=== PATIENT | male | born 1950 | race Caucasian/White ===

== ENCOUNTER → 2021-09-25 | Outpatient (CLI) | payer MEDICARE ==
[~2021-09-25] MED LIST: AMLODIPINE BESYL5 MG PO; ASPIRIN81 MG PO; C-1000 WITH R1000 MG PO; GNP B-COMPLEX1 EACH PO; LOPRESSOR 25 MG25 MG PO; MELOXICAM15 MG PO; PRAVACHOL40 MG PO; PREDNISONE 5 MG5 MG PO; TUMERSAID TABL1 EACH PO; XARELTO20 MG PO; ZESTRIL 40 MG T40 MG PO; ZOLOFT25 MG PO
== END ==
LOC: HEART 5 07:53
DX: I25.10 Atherosclerotic heart disease of native coronary artery without angina pectoris (principal); I08.3 Combined rheumatic disorders of mitral, aortic and tricuspid valves; I10 Essential (primary) hypertension
CPT/HCPCS: 93306

== ENCOUNTER → 2022-01-15 | Outpatient (CLI) | payer MEDICARE ==
[2022-01-15 09:40] LABS: HEMOGLOBIN 13.9 gm/dl (14.0-17.5); RED BLOOD COUNT 4.88 M/UL (4.20-5.50); WHITE BLOOD COUNT 9.8 K/UL (4.5-11.0)
[2022-01-15 09:53] LABS: BUN/CREATININE RATIO 29 (0-10)
== END ==
LOC: LAB 09:06
PROVIDERS: Internal Medicine
DX: E78.00 Pure hypercholesterolemia, unspecified (principal); M06.9 Rheumatoid arthritis, unspecified; M25.50 Pain in unspecified joint; Z79.1 Long term (current) use of non-steroidal anti-inflammatories (NSAID); Z79.899 Other long term (current) drug therapy
CPT/HCPCS: 36415; 80053; 85025; 85652